=== PATIENT | female | born 1940 | race Caucasian/White ===

== ENCOUNTER → 2021-01-05 | Day surgery (SDC) | payer MEDICARE, BC ==
--- NOTE | 2021-01-04 15:24 | PCM.PREANE ---
<Evangelina Solano - Last Filed: 01/04/21 15:19> Preanesthetic Assessment - Procedure Proposed Procedure: Right Carpal Tunnel Release with left carpal tunnel steroid injection - Anesthesia/Transfusion/Family Hx Anesthesia History: Prior Anesthesia Without Reaction Family History of Anesthesia Reaction: No Transfusion History: Prior Transfusion Without Reaction Intubation History: Unknown - Review of Systems General: Other (poor exercise tolerance) Pulmonary: No Symptoms (COPD: quit smoking 1997) Cardiovascular: No Symptoms (Elevated cholesterol, CAD, HTN, Atrial fibrillation on eliquis), Dyspnea on Exertion Gastrointestinal: No Symptoms (GERD) Other: Reports: Easy Bleeding (On Eliquis, last dose: stopped ), Easy Bruising, Diabetes (am blood sugar=), Thyroid Problems (hypothyroid) - Physical Assessment NPO Status Date: 01/04/21 Vital Signs: HR: Sat: Temp: B/P: Resp: Height: 1.75 m ASA Class: 3 Mental Status: Alert & Oriented x3 - Imaging/EKG Impressions: CXR: cardiomegaly, lungs hyperextended EKG: A-fibrillation - Allergies Allergies/Adverse Reactions: Allergies Allergy/AdvReac Type Severity Reaction Status Date / Time dexlansoprazole Allergy Other Verified 01/04/21 14:54 [From Dexilant] lisinopril [From Prinivil] Allergy Other Verified 01/04/21 14:54 - Anesthesia Plan Pre-Op Medication Ordered: Beta Bryce Beta Bryce: Metoprolol Med Last Dose Date: 01/05/21 - Acknowledgements Anesthesia Type Planned: MAC Pt an Appropriate Candidate for the Planned Anesthesia: Yes Alternatives and Risks of Anesthesia Discussed w Pt/Guardian: Yes Pt/Guardian Understands and Agrees with Anesthesia Plan: Yes PreAnesthesia Questionnaire HEENT History: Reports: None Cardiovascular History: Reports: None - Infectious Disease History Infectious Disease History: Reports: None - Past Surgical History HEENT Surgical History: Reports: None Cardiovascular Surgical History: Reports: None - SUBSTANCE USE Tobacco Use Status *Q: Former Tobacco User Recreational Drug Use History: No - HOME MEDS Home Medications: Home Meds Albuterol [Ventolin HFA] 2 puff INH Q4H PRN 01/04/21 [History] Allopurinol [Zyloprim] 300 mg PO DAILY 01/04/21 [History] Apixaban [Eliquis] 5 mg PO DAILY 01/04/21 [History] Aspirin [[place]] 81 mg PO DAILY 01/04/21 [History] Cholecalciferol (Vitamin D3) [Vitamin D3] 2,000 unit PO DAILY 01/04/21 [History] Diltiazem [Cardizem CD] 120 mg PO DAILY 01/04/21 [History] Furosemide [Lasix] 60 mg PO DAILY 01/04/21 [History] Gabapentin [Neurontin] 300 mg PO BID 01/04/21 [History] Gabapentin [Neurontin] 900 mg PO BEDTIME 01/04/21 [History] Levothyroxine [Synthroid] 88 mcg PO DAILY 01/04/21 [History] Linagliptin [Tradjenta] 5 mg PO DAILY 01/04/21 [History] Metoprolol Succinate 50 mg PO DAILY 01/04/21 [History] Pantoprazole Sodium [Protonix] 40 mg PO BID 01/04/21 [History] Rosuvastatin [Crestor] 10 mg PO DAILY 01/04/21 [History] Spironolactone [Aldactone] 25 mg PO DAILY 01/04/21 [History] Umeclidinium Brm/Vilanterol Tr [Anoro Ellipta 62.5-25 MCG] 1 puff INH DAILY 01/04/21 [History] metFORMIN [Glucophage] 1,000 mg PO QAM 01/04/21 [History] metFORMIN [Glucophage] 500 mg PO QPM 01/04/21 [History] traMADol [Ultram] 50 mg PO Q6H PRN #8 tab 01/05/21 [Rx] <Aye Hernandez - Last Filed: 01/05/21 11:53> Preanesthetic Assessment - Anesthesia/Transfusion/Family Hx Anesthesia History: Prior Anesthesia Without Reaction Family History of Anesthesia Reaction: No Transfusion History: No Prior Transfusion(s) Intubation History: Unknown - Review of Systems General: Other Pulmonary: No Symptoms Cardiovascular: Dyspnea on Exertion Gastrointestinal: No Symptoms Neurological: No Symptoms Other: Reports: Easy Bleeding (On Eliquis, last dose: stopped 01/02/21), Easy Bruising, Diabetes (am blood feunq=[id number]), Thyroid Problems - Physical Assessment NPO Status Date: 01/05/21 NPO Status Time: 04:30 ASA Class: 3 Mental Status: Alert & Oriented x3 Airway Class: Mallampati = 3 Dentition: Reports: Bridge (upper) Thyro-Mental Finger Breadths: 3 Mouth Opening Finger Breadths: 2 ROM/Head Extension: Full Lungs: Clear to Auscultation, Normal Respiratory Effort Cardiovascular: Regular Rate, Regular Rhythm - Anesthesia Plan Pre-Op Medication Ordered: Beta Bryce Beta Bryce: Metoprolol Med Last Dose Time: 06:00 - Acknowledgements Anesthesia Type Planned: MAC Pt an Appropriate Candidate for the Planned Anesthesia: Yes Alternatives and Risks of Anesthesia Discussed w Pt/Guardian: Yes Pt/Guardian Understands and Agrees with Anesthesia Plan: Yes PreAnesthesia Questionnaire HEENT History: Reports: Impaired Vision Cardiovascular History: Reports: Cardiomyopathy, Hypertension, SOB on Exertion Respiratory History: Reports: COPD, SOB (with exertion) Gastrointestinal History: Reports: GERD Genitourinary History: Reports: None Musculoskeletal History: Reports: Back Pain, Chronic Psychiatric History: Reports: None Endocrine/Metabolic History: Reports: Diabetes, Type II - Past Surgical History GI Surgical History: Reports: Colon, Colonoscopy Female Surgical History: Reports: D&C Neurological Surgical History: Reports: Lumbar Spine Musculoskeletal Surgical History: Reports: Shoulder Surgery - SUBSTANCE USE Tobacco Use Status *Q: Former Tobacco User - CURRENT (IN HOUSE) MEDS Current Meds: Current Medications Lactated Ringer's (Ringers, Lactated) 1,000 mls @ 125 mls/hr IV ASDIRECTED HUMZA Stop: 01/05/21 23:00 Lidocaine/Sodium Bicarbonate (Lidocaine 1%/Sod Bicarbonate In Ns 8.4% 1 Ml Syringe) 0.25 ml IDERM ONETIME PRN PRN Reason: Prior to IV Start Stop: 01/05/21 18:00 Sodium Chloride (Sodium Chloride 0.9% 10 Ml Syringe) 10 ml FLUSH ASDIRECTED PRN PRN Reason: Keep Vein Open Stop: 01/05/21 18:00 Discontinued Medications Cefazolin Sodium (Cefazolin 1 Gm Vial) Confirm Administered Dose 2 gm .ROUTE .STK-MED ONE Stop: 01/05/21 11:39 Fentanyl (Fentanyl 100 Mcg/2 Ml Sdv) Confirm Administered Dose 100 mcg .ROUTE .STK-MED ONE Stop: 01/05/21 11:41 Lidocaine HCl (Xylocaine-Mpf 1%) Confirm Administered Dose 4 mls @ as directed .ROUTE .STK-MED ONE Stop: 01/05/21 11:39 Ondansetron HCl (Ondansetron 4 Mg/2 Ml Sdv) Confirm Administered Dose 4 mg .ROUTE .STK-MED ONE Stop: 01/05/21 11:39 Propofol (Propofol 200 Mg/20 Ml Sdv) Confirm Administered Dose 200 mg .ROUTE .STK-MED ONE Stop: 01/05/21 11:40
[~2021-01-05] MED LIST: Lactated Ringers 1,000 ML IV SCH; Lidocaine 1% 30 ML SDV ONE; Lidocaine 1% 4 ML ONE; Lidocaine 1%/Sod Bicarbonate in NS 8.4% 1 ML Syringe IDERM PRN; Ondansetron 4 MG/2 ML SDV ONE; Propofol 200 MG/20 ML SDV ONE; Sodium Chloride 0.9% 10 ML Syringe FLUSH PRN; Triamcinolone Acetonide 40 MG/ML 1 ML SDV ONE; ceFAZolin 1 GM Vial ONE; fentaNYL 100 MCG/2 ML SDV ONE
[2021-01-05] MEDS: Bupivacaine 0.25% 10 ML SDV ONE ×2 (12:43→12:47)
--- NOTE | 2021-01-05 12:58 | PCM48HPAN ---
Post Anesthesia Note - EVALUATION WITHIN 48HRS OF ANESTHETIC Vital Signs in Normal Range: Yes Patient Participated in Evaluation: Yes Respiratory Function Stable: Yes Airway Patent: Yes Cardiovascular Function Stable: Yes Hydration Status Stable: Yes Pain Control Satisfactory: Yes Nausea and Vomiting Control Satisfactory: Yes Mental Status Recovered: Yes
--- NOTE | 2021-01-18 06:34 | PCM.OPNOTE ---
- General Post-Op/Procedure Note Date of Surgery/Procedure: 01/05/21 Operative Procedure(s): right carpal tunnel release with left carpal tunnel injection Pre Op Diagnosis: bilateral median nerve compression neuropathy Post-Op Diagnosis: Same Anesthesia Technique: Local, MAC Primary Surgeon: Jerzy Pope Anesthesia Provider: Aye Hernandez Field Support Specialist: Rossy Fonseca EBSrinivasa in mLs: 5 Complications: None Condition: Good
--- NOTE | 2021-01-18 06:51 | OR ---
DATE OF OPERATION: 01/05/2021 SURGEON: Jerzy Pope MD OPERATION PERFORMED: Right carpal tunnel release with left carpal tunnel injection. PREOPERATIVE DIAGNOSIS: Bilateral median nerve compression neuropathy. POSTOPERATIVE DIAGNOSIS: Bilateral median nerve compression neuropathy. ANESTHESIA: Local MAC. ANESTHESIA PROVIDER: Aye Hernandez CRNA ASSISTANT FARM OPERATIONS MANAGER: Rossy Fonseca PA-C ESTIMATED BLOOD LOSS: Less than 5 mL. COMPLICATIONS: None. CONDITION: Stable. DESCRIPTION OF PROCEDURE: The patient was identified in the preop holding area. Proper site was marked and identified by the surgeon. The patient was taken back to the operating theater where after adequate anesthesia, the patient's right upper extremity was sterilely prepped and draped in the usual sterile fashion. OR time-out was performed. The patient did not receive antibiotics and it is not indicated for soft tissue hand procedure. At this time, the right upper extremity was exsanguinated and an Esmarch was used as a tourniquet on the forearm. At this time, using 1% lidocaine without epinephrine and 0.25% Marcaine without epinephrine, the palmar cutaneous branch of the median nerve was anesthetized and then the incisional site was anesthetized using Gonsalves cardinal line and ulnar border of the fourth digit as reference. Once this had set up, an incision was made. Blunt dissection was taken down to the palmar cutaneous fascia. Palmar cutaneous fascia was incised with a Oneida blade. At this time, the transverse carpal ligament was identified. A small rent was made in the transverse carpal ligament with a Oneida blade under direct visualization. Resection of the transverse carpal ligament was done distally using tenotomy scissors making sure to stop short of the palmar arch. At this time, attention was turned proximally after it was found to be adequately released. Using the tenotomy scissors keeping the tips ulnar to protect the palmar cutaneous branch of the median nerve, the superficial forearm fascia as well as the transverse carpal ligament were resected proximally. It was found to be adequate release both proximally and distally. At this time, adequate saline was irrigated through the wound. 4-0 nylon sutures were used closure of the skin. The patient was placed in a sterile soft dressing and sent to PACU in stable condition. Under sterile technique, 1 mL of 40 mg Kenalog, 2 mL of 0.25% Marcaine were injected to the left carpal tunnel. The patient tolerated all procedures well. WILLIAMS /[id number]
== END | disposition home or self-care (01) ==
LOC: JD.SDS 11:24
PROVIDERS: ATTEND Orthopaedic Surgery
DX: G56.13 Other lesions of median nerve, bilateral upper limbs (principal); G56.03 Carpal tunnel syndrome, bilateral upper limbs; J44.9 Chronic obstructive pulmonary disease, unspecified; I48.20 Chronic atrial fibrillation, unspecified; E11.40 Type 2 diabetes mellitus with diabetic neuropathy, unspecified; Z20.822 Contact with and (suspected) exposure to COVID-19; E89.0 Postprocedural hypothyroidism; Z79.84 Long term (current) use of oral hypoglycemic drugs; Z88.8 Allergy status to other drugs, medicaments and biological substances; Z79.899 Other long term (current) drug therapy; Z79.82 Long term (current) use of aspirin; Z87.891 Personal history of nicotine dependence
CPT/HCPCS: 20526; 64721; J0690; J2405; J2704; J3010; J3301; J3490; J7120; 01810